=== PATIENT | female | born 1985 | race Caucasian/White ===

== ENCOUNTER 2021-03-18 10:15 | Inpatient (IN) | payer BC ==
[2021-03-18] MEDS: ELECTROLYTE-148 SOLN 1,000 ML IV SCH ×2 (11:00→12:15)
[2021-03-18 11:18] VITALS: BMI 41.2
[2021-03-18] MEDS ORDERED: PCA PUMP NR ONE (11:30)
[2021-03-18] MEDS ORDERED: FENTANYL/BUPIVACAINE/NS/PF - PCEA - 50 ML DISP.SYRIN EP ONE (11:30)
[2021-03-18] MEDS ORDERED: BUPIVACAINE HCL/PF 0.25% (2.5MG/ML) 10 ML VIAL ONE (11:40)
[2021-03-18 12:00] LABS: BASO % 0.3 % (0-2.0); EOS % 0.1 % (0-4.5); HEMATOCRIT 37.6 % (32.4-45.2); HEMOGLOBIN 12.9 GM/dL (10.7-15.3); MCH 32.3 pg (25.7-33.7); MCHC 34.3 g/dl (32.0-36.0); MEAN CELL VOLUME 94.2 fl (80-96); MEAN PLT VOLUME 9.2 fl (7.5-11.1); NEUT % 88.6 % (42.8-82.8); PLATELET COUNT 261 10^3/uL (134-434); RBC 3.99 M/mm3 (3.60-5.2); RDW 12.8 % (11.6-15.6); WHITE BLOOD COUNT 23.3 K/mm3 (4.0-10.0)
[2021-03-18] MEDS: FENTANYL/BUPIVACAINE/NS/PF - PCEA - 50 ML DISP.SYRIN EP SCH (12:00)
[2021-03-18 12:19] LABS: CALCIUM 9.1 mg/dL (8.5-10.1)
[2021-03-18 12:20] LABS: BLOOD UREA NITROGEN 5.5 mg/dL (7-18)
[2021-03-18 12:23] LABS: CREATININE 0.4 mg/dL (0.55-1.3)
[2021-03-18] MEDS: VANCOMYCIN 2,000 MG in DEXTROSE 5%-WATER - 500 ML IVPB SCH ×2 (12:33→18:02)
[2021-03-18] MEDS ORDERED: NALOXONE HCL 0.4 MG/ML VIAL IVPUSH PRN (12:47)
[2021-03-18 12:48] LABS: INR 0.96 (0.83-1.09); PROTHROMBIN TIME (PATIENT) 11.2 SEC (9.7-13.0)
[2021-03-18 12:51] LABS: ACTIVATED PTT 28.6 SECONDS (25.2-36.5); ANISOCYTOSIS 0; MACROCYTOSIS 0; PLATELET ESTIMATE NORMAL
[2021-03-18] MEDS ORDERED: OXYTOCIN 20 UNITS in 0.9% NS 20 UNIT/1,000 ML INFUS.BAG IV ONE (15:12)
[2021-03-18] MEDS ORDERED: METHYLERGONOVINE MALEATE 0.2 MG/1 ML AMP IM PRN (17:35)
[2021-03-18] MEDS ORDERED: WITCH HAZEL 50% (TUCKS) 40 PAD/JAR PAD TP PRN (17:35)
[2021-03-18] MEDS ORDERED: BISACODYL 10 MG SUPP.RECT RC PRN (17:35)
[2021-03-18] MEDS ORDERED: BENZOCAINE 28 GM HEMORRHOIDAL OINTMENT TP PRN (17:35)
[2021-03-18] MEDS ORDERED: BENZOCAINE 20% 57 GM BOTTLE TP PRN (17:35)
[2021-03-18] MEDS ORDERED: oxyCODONE HCL 5 MG TABLET PO PRN (17:35)
[2021-03-18] MEDS ORDERED: ACETAMINOPHEN 325 MG TABLET (FP) PO PRN (17:35)
[2021-03-18] MEDS ORDERED: OXYTOCIN 20 UNITS in 0.9% NS 20 UNIT/1,000 ML INFUS.BAG IV SCH (17:45)
[2021-03-19 08:43] LABS: BASO % 0.3 % (0-2.0); EOS % 0.4 % (0-4.5); HEMATOCRIT 31.7 % (32.4-45.2); HEMOGLOBIN 11.1 GM/dL (10.7-15.3); LYMPH % 9.3 % (8-40); MCH 32.8 pg (25.7-33.7); MCHC 34.9 g/dl (32.0-36.0); MEAN CELL VOLUME 93.8 fl (80-96); MEAN PLT VOLUME 8.5 fl (7.5-11.1); MONO % 7.3 % (3.8-10.2); NEUT % 82.7 % (42.8-82.8); PLATELET COUNT 226 10^3/uL (134-434); RBC 3.38 M/mm3 (3.60-5.2); RDW 13.3 % (11.6-15.6); WHITE BLOOD COUNT 20.2 K/mm3 (4.0-10.0)
[2021-03-19 09:35] LABS: ANISOCYTOSIS 0; HELMET CELLS 0; HOWELL-JOLLY BODIES 0; MACROCYTOSIS 0; OVALOCYTE 0; PLATELET ESTIMATE NORMAL; ROULEAU 0; SICKELED CELLS 0; TARGET CELLS 0; TEAR DROP CELLS 0; TOXIC GRANULATION 0
[2021-03-19] MEDS: IBUPROFEN 600 MG TABLET (FP) PO PRN (18:49)
[2021-03-19 19:47] LABS: HIV INTERPRETATION NEGATIVE (NEGATIVE)
[2021-03-19] MEDS: FENTANYL/BUPIVACAINE/NS/PF - PCEA - 50 ML DISP.SYRIN EP SCH (20:55)
[2021-03-19] MEDS ORDERED: SENNOSIDES/DOCUSATE COMBO (SENNA PLUS) TABLET (UD) PO PRN (22:00)
[2021-03-20] MEDS: IBUPROFEN 600 MG TABLET (FP) PO PRN (08:40)
[2021-03-20 10:55] VITALS: BP 126/89; PULSE 78; TEMP 98
== END 2021-03-20 13:15 | disposition home or self-care (01) | DRG 807 ==
LOC: JDEL 10:15 → JLDR 10:35 → J3W 19:52
PROVIDERS: ADMIT Obstetrics & Gynecology; ATTEND Obstetrics & Gynecology
PROC: 10D07Z8 Extraction of Products of Conception, Other, Via Natural or Artificial Opening (ICD-10-PCS; principal; 2021-03-18)
DX: O32.6XX0 Maternal care for compound presentation, not applicable or unspecified (principal); Z37.0 Single live birth; O70.0 First degree perineal laceration during delivery; O99.824 Streptococcus B carrier state complicating childbirth; Z3A.39 39 weeks gestation of pregnancy; Z88.0 Allergy status to penicillin
CPT/HCPCS: 36415; 59409; 80048; 85025; 85610; 85730; 86780; 86850; 86900; 86901; 87389; C9803; U0003; U0005

== ENCOUNTER 2023-11-08 07:11 | Inpatient (IN) | payer BC ==
[2023-11-08] MEDS: ELECTROLYTE-148 SOLN 1,000 ML IV SCH (07:45)
[2023-11-08 08:07] VITALS: BMI 42.4
[2023-11-08 08:42] LABS: HEMATOCRIT 37.8 % (32.4-45.2); HEMOGLOBIN 13.2 GM/dL (10.7-15.3); MCH 32.7 pg (25.7-33.7); MCHC 34.9 g/dl (32.0-36.0); MEAN CELL VOLUME 93.6 fl (80-96); MEAN PLT VOLUME 8.8 fl (7.5-11.1); PLATELET COUNT 232 10^3/uL (134-434); RBC 4.03 M/mm3 (3.60-5.2); RDW 13.7 % (11.6-15.6); WHITE BLOOD COUNT 19.8 K/mm3 (4.0-10.0)
[2023-11-08 08:54] LABS: ACTIVATED PTT 32.5 SECONDS (25.2-36.5); INR 0.89 (0.83-1.09); PROTHROMBIN TIME (PATIENT) 10.3 SEC (9.7-13.0)
[2023-11-08] MEDS ORDERED: AMPICILLIN SODIUM 2 GM VIAL ONE (08:59)
[2023-11-08] MEDS ORDERED: FENTANYL/BUPIVACAINE/NS/PF - PCEA - 50 ML DISP.SYRIN EP ONE (08:59)
[2023-11-08 09:02] LABS: POTASSIUM 3.8 mmol/L (3.5-5.1)
[2023-11-08 09:03] LABS: CALCIUM 9.1 mg/dL (8.5-10.1)
[2023-11-08 09:04] LABS: BLOOD UREA NITROGEN 9.5 mg/dL (7-18)
[2023-11-08 09:06] LABS: CREATININE 0.5 mg/dL (0.55-1.3)
[2023-11-08] MEDS ORDERED: OXYTOCIN 20 UNITS in 0.9% NS 20 UNIT/1,000 ML INFUS.BAG IV ONE ×2 (09:08→11:43)
[2023-11-08] MEDS: OXYTOCIN 20 UNITS in 0.9% NS 20 UNIT/1,000 ML INFUS.BAG IV SCH (09:21)
[2023-11-08 09:22] LABS: ANISOCYTOSIS 0; MACROCYTOSIS 0
[2023-11-08] MEDS ORDERED: WITCH HAZEL 50% (TUCKS) 40 PAD/JAR PAD TP PRN (09:38)
[2023-11-08] MEDS ORDERED: oxyCODONE HCL 5 MG TABLET PO PRN (09:38)
[2023-11-08] MEDS ORDERED: METHYLERGONOVINE MALEATE 0.2 MG/1 ML AMP IM PRN (09:38)
[2023-11-08] MEDS ORDERED: BISACODYL 10 MG SUPP.RECT RC PRN (09:38)
[2023-11-08] MEDS ORDERED: ACETAMINOPHEN 325 MG TABLET (FP) PO PRN (09:38)
[2023-11-08] MEDS ORDERED: BENZOCAINE 20% 57 GM BOTTLE TP PRN (09:38)
[2023-11-08] MEDS ORDERED: BENZOCAINE 28 GM HEMORRHOIDAL OINTMENT TP PRN (09:38)
[2023-11-08] MEDS: ACETAMINOPHEN 1000 MG/100 ML BAG IVPB ONE (10:00)
[2023-11-08 14:07] LABS: HIV INTERPRETATION NEGATIVE (NEGATIVE)
[2023-11-08] MEDS: NIFEdipine E.R. 30 MG TABLET PO SCH (23:25)
[2023-11-09] MEDS: IBUPROFEN 600 MG TABLET (FP) PO PRN (02:45)
[2023-11-09 08:59] LABS: BASO % 0.3 % (0-2.0); EOS % 0.9 % (0-4.5); HEMATOCRIT 34.1 % (32.4-45.2); HEMOGLOBIN 11.8 GM/dL (10.7-15.3); LYMPH % 12.1 % (8-40); MCH 32.4 pg (25.7-33.7); MCHC 34.7 g/dl (32.0-36.0); MEAN CELL VOLUME 93.5 fl (80-96); MONO % 6.9 % (3.8-10.2); NEUT % 79.8 % (42.8-82.8); PLATELET COUNT 235 10^3/uL (134-434); RBC 3.65 M/mm3 (3.60-5.2); RDW 13.1 % (11.6-15.6); WHITE BLOOD COUNT 17.5 K/mm3 (4.0-10.0)
[2023-11-09] MEDS ORDERED: NIFEdipine E.R. 30 MG TABLET PO SCH (10:00)
[2023-11-09] MEDS ORDERED: LABETALOL HCL 200 MG TABLET (FP) PO SCH (10:00)
[2023-11-09 10:09] VITALS: RESP 18
[2023-11-09] MEDS: SENNOSIDES/DOCUSATE COMBO (SENNA PLUS) TABLET (UD) PO PRN (22:12)
[2023-11-09 22:29] VITALS: TEMP 98.1
[2023-11-10 10:52] VITALS: BP 118/81; PULSE 108
== END 2023-11-10 14:45 | disposition home or self-care (01) | DRG 807 ==
LOC: JLDR 07:11 → J3W 11:55
PROVIDERS: ADMIT Obstetrics & Gynecology; ATTEND Obstetrics & Gynecology
PROC: 10E0XZZ Delivery of Products of Conception, External Approach (ICD-10-PCS; principal; 2023-11-08)
DX: O69.1XX0 Labor and delivery complicated by cord around neck, with compression, not applicable or unspecified (principal); Z37.0 Single live birth; Z3A.39 39 weeks gestation of pregnancy
CPT/HCPCS: 36415; 59409; 80048; 85025; 85610; 85730; 86780; 86803; 86850; 86900; 86901; 87389; J0131